=== PATIENT | male | born 1995 | race Caucasian/White ===

== ENCOUNTER 2018-10-21 02:55 | Emergency (ER) | payer BC ==
[2018-10-21] MEDS ORDERED: LIDOCAINE 1% INJ 10MG/ML (20 ML MDV) ONE (05:15)
--- NOTE | 2018-10-21 06:39 | ED ---
Extremity Problem HPI - Related Data Home Medications Medication Instructions Recorded Confirmed No Known Home Medications 05/23/15 05/23/15 Allergies Allergy/AdvReac Type Severity Reaction Status Date / Time No Known Allergies Allergy Verified 05/23/15 19:54 Review of Systems ROS Statement: Those systems with pertinent positive or pertinent negative responses have been documented in the HPI. ROS Other: All systems not noted in ROS Statement are negative. Past Medical History Past Medical History: No Reported History History of Any Multi-Drug Resistant Organisms: None Reported Past Surgical History: No Surgical Hx Reported Past Psychological History: No Psychological Hx Reported Smoking Status: Current every day smoker Past Alcohol Use History: None Reported Past Drug Use History: None Reported Course Vital Signs 10/21/18 06:56 Temperature 98.1 F Pulse Rate 86 Respiratory 14 Rate Blood Pressure 130/86 O2 Sat by Pulse 99 Oximetry Medical Decision Making - Medical Decision Making This patient was begun on downtime, please see the paper record. Disposition Clinical Impression: Effusion, left elbow, Elbow injury, Head injury, Face lacerations Disposition: TRANSFER TO PSYCH HOSP/UNIT Condition: Good Instructions (If sedation given, give patient instructions): Head Injury (ED), Facial Laceration (ED) Additional Instructions: As we discussed, no skateboarding until your elbow is cleared by repeat x-rays in 1 week. Is patient prescribed a controlled substance at d/c from ED?: No Referrals: Fernanda David MD [Primary Care Provider] - 1-2 days
[2018-10-21 06:56] VITALS: BP 130/86; PULSE 86; RESP 14; TEMP 98.1
--- NOTE | 2018-10-21 09:03 | XR ---
EXAM: XR Left Elbow Complete, 3 or More Views CLINICAL HISTORY: Fell pain to left elbow. TECHNIQUE: Frontal, lateral and oblique views of the left elbow. COMPARISON: No relevant prior studies available. FINDINGS: Bones/joints: A joint effusion appears to be present as fat pads are seen. No obvious acute or healing fracture or malalignment. Soft tissues: No radiopaque foreign body. IMPRESSION: Joint effusion without acute or healing fracture or malalignment.
--- NOTE | 2018-10-21 09:05 | CT ---
EXAM: CT Head Without Intravenous Contrast CLINICAL HISTORY: fell and LOC TECHNIQUE: Axial computed tomography images of the head/brain without intravenous contrast. This CT exam was performed using one or more of the following dose reduction techniques: automated exposure control, adjustment of the mA and/or kV according to patient size, and/or use of iterative reconstruction technique. COMPARISON: No relevant prior studies available. FINDINGS: Brain: No acute hemorrhage Ventricles: Unremarkable. No ventriculomegaly. Bones/joints: No acute fracture. 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 Sinuses: No fluid levels. Mastoid air cells: Unremarkable as visualized. No mastoid effusion. IMPRESSION: No acute findings.
--- NOTE | 2018-10-29 07:22 | CDI ---
Dear Kwesi Donovan MD: Please do addendum clarification on disposition whether patient is transferred to [facility] or Home. Thank you, Philip Dowling, Veneer Stapler. If you have any questions, please contact [facility] at [phone]. MTDD
--- NOTE | 2018-11-11 01:17 | CDI ---
Dear Kwesi Donovan MD: Please do addedum laceration repair procedure if any performed as lidocaine was given. Thank you, Philip Dowling, Program Paraprofessional. If you have any questions, please contact [facility] at [phone]. mtdD
== END 2018-10-21 06:58 | disposition home or self-care (01) ==
LOC: EC 02:55
DX: S01.81XA Laceration without foreign body of other part of head, initial encounter (principal); S06.9X9A Unspecified intracranial injury with loss of consciousness of unspecified duration, initial encounter; S59.902A Unspecified injury of left elbow, initial encounter; S60.511A Abrasion of right hand, initial encounter; M25.422 Effusion, left elbow; F12.929 Cannabis use, unspecified with intoxication, unspecified; F17.200 Nicotine dependence, unspecified, uncomplicated; R61 Generalized hyperhidrosis; V00.131A Fall from skateboard, initial encounter
CPT/HCPCS: 99284; 12011; 73080; 70450; L0120; J2001

== ENCOUNTER → 2020-01-14 | Outpatient (CLI) | payer BC | END | disposition home or self-care (01) | LOC: LABWHC1 12:15 | PROVIDERS: ATTEND Emergency Medicine | DX: Z20.828 Contact with and (suspected) exposure to other viral communicable diseases (principal) | CPT/HCPCS: U0003; C9803 ==